=== PATIENT | female | born 1980 | race Caucasian/White ===

== ENCOUNTER 2023-07-19 05:22 | Emergency (ER) | payer OTHER ==
[2023-07-19 05:43] VITALS: RESP 20; TEMP 97.7; BMI 31.1
[2023-07-19] MEDS ORDERED: IBUPROFEN 400 MG TABLET (FP) PO ONE (05:54)
[2023-07-19 07:37] LABS: BASO % 0.5 % (0-2.0); HEMATOCRIT 40.5 % (32.4-45.2); HEMOGLOBIN 13.4 GM/dL (10.7-15.3); LYMPH % 25.3 % (8-40); MCH 30.1 pg (25.7-33.7); MEAN CELL VOLUME 91.1 fl (80-96); MEAN PLT VOLUME 8.7 fl (7.5-11.1); MONO % 12.9 % (3.8-10.2); NEUT % 59.3 % (42.8-82.8); PLATELET COUNT 275 10^3/uL (134-434); RBC 4.44 M/mm3 (3.60-5.2); RDW 14.1 % (11.6-15.6); WHITE BLOOD COUNT 10.9 K/mm3 (4.0-10.0)
[2023-07-19 07:45] LABS: POTASSIUM 4.1 mmol/L (3.5-5.1)
[2023-07-19 07:47] LABS: CALCIUM 9.6 mg/dL (8.5-10.1)
[2023-07-19 07:48] LABS: ALBUMIN 3.8 g/dl (3.4-5.0); BLOOD UREA NITROGEN 17.7 mg/dL (7-18)
[2023-07-19 07:51] LABS: CREATININE 0.8 mg/dL (0.55-1.3)
[2023-07-19 07:52] LABS: BILIRUBIN,TOTAL 0.3 mg/dL (0.2-1); TOT PROT 7.4 g/dl (6.4-8.2)
[2023-07-19 08:50] VITALS: BP 122/80; PULSE 80
== END 2023-07-19 09:25 | disposition home or self-care (01) ==
LOC: JER 05:22
DX: R07.9 Chest pain, unspecified (principal); R06.02 Shortness of breath; R05.9 Cough, unspecified; Z20.822 Contact with and (suspected) exposure to COVID-19
CPT/HCPCS: 0241U-QW; 36415; 71046-TC-FY; 80053; 84484; 85025; 99285-25